=== PATIENT | male | born 1960 | race Caucasian/White ===

== ENCOUNTER 2016-07-07 10:52 | Day surgery (SDC) | payer OTHER ==
--- NOTE | 2016-07-06 09:48 | HP ---
DATE OF CLINIC: 06/30/2016 MO MOREL : 1960 PLANNED PROCEDURE: Left Knee Arthroscopic Partial Medial Meniscectomy DATE OF SURGERY: July 07, 2016 SURGEON: Mark Houston M.D. HISTORY OF PRESENT ILLNESS Mo Morel is a 55 year old male. * Medication list reviewed with patient allergy list reviewed with patient. This is a 55-year-old gentleman who was seen previously by [facility] with complaints of left knee pain and mechanical symptoms. The patient had an injury in September of 2015, and another in January of 2016 that resulted and difficulty with bearing weight, pain along the medial side of his knee and catching, popping and clicking when he tries to bear weight. He has tried anti-inflammatory medications. He has not tried any injections. He has not been to physical therapy. He does not have a previous history of any surgeries on this knee. He came to us with x-rays and an MRI which had been reviewed. His complaints are of ongoing left knee pain that is severely limiting in his capabilities to take care of himself and to participate in his desired levels of activities. After discussion and review of treatment options, both operative and non-operative, he has elected to proceed with surgery and presents today preoperatively. PAST MEDICAL AND SURGICAL HISTORY: Past medical history is significant for chronic obstructive pulmonary disease. The patient is on 4 L of oxygen at baseline, he has been on that level for about the last six months. He has been oxygen for about two years. Otherwise, past surgical history is noncontributory. CURRENT MEDICATION * Cyclobenzaprine HCl 10 MG Tablet 1 every bedtime 0 days, 0 refills * Lisinopril 10 MG Tablet 1 once a day 0 days, 0 refills * OxyCODONE HCl 10 MG Tablet three times a day 0 days, 0 refills * ProAir HFA 108 (90 Base) MCG/ACT Aerosol Solution as directed 0 days, 0 refills * TraZODone HCl 150 MG Tablet 1 every night as needed 0 days, 0 refills PAST MEDICAL/SURGICAL HISTORY Reported: Shoulder Arthroscopy Left shoulder scope/RCR, Right shoulder scope/RCR. Medical: Bladder disease has to pee a lot, a fracture ribs, Reported numbness feet and hands, Diabetes Mellitus, history of Arthritis, Depression, Hepatitis HEP A, and Poor healing wounds/lesions. Surgical / Procedural: Prior surgery lung surgery due to rib fractures, Appendectomy, and Cholecystectomy. SOCIAL HISTORY Behavioral: Caffeine use and non-smoker quit smoking stopped 2 years ago after smoking half a pack a day for 25 years. Smoking status: Former smoker. Alcohol: Alcohol a 6 pack a week and alcohol use. ALLERGIES * No Known Allergies REVIEW OF SYSTEMS No recent constitutional symptoms to include fevers and chills. No recent cardiovascular symptoms to include chest pain or palpitations. No recent respiratory symptoms to include shortness of breath or recent infections. He has respiratory complaints as noted above. PHYSICAL FINDINGS * Vitals taken 06/30/2016 01:19 pm BP-Sitting L 119/72 mmHg BP Cuff Size Regular Pulse Rate-Sitting 95 bpm Temp-Oral 97.7 F Height 71.5 in Weight 275 lbs 3.2 oz Body Mass Index 37.8 kg/m2 Body Surface Area 2.43 m2 Pain Level 9 Ears, Nose, Throat: * ENT: normal. Lungs: * Clear to auscultation. Cardiovascular: Heart Rate and Rhythm: * Normal. Abdomen: * Normal. Neurological: Motor: * Dominant Hand = Right Hand. This is a somewhat older than stated age appearing gentleman who appears somewhat disheveled, but is awake, alert and conversant throughout the encounter. He has oxygen in place with a bottle of oxygen by nasal cannula. He is occasionally some short of breath during the interview. CARDIOVASCULAR: Intact peripheral pulses on bilateral lower extremities. No significant edema on inspection of bilateral lower extremities. NEUROLOGIC: Patient had intact coordinated composite motion of the bilateral lower extremities and sensation intact to light touch in all distributions of bilateral lower extremities. PSYCHIATRIC: Patient was oriented to person, place and time and displayed appropriate mood and affect during the encounter. SKIN: Exam of the skin on bilateral lower extremities showed no significant scars, lesions, rashes or masses. FOCUSED MUSCULOSKELETAL EXAM: Focused musculoskeletal examination of his left knee shows normal resting station of the hips, knees and ankles. He has no erythema, ecchymosis or significant swelling. He has tenderness to palpation anteriorly with a positive patella grind and some pain along the medial joint line. His range of motion is from 0 to 120 degrees. He is stable to varus and valgus stress although he gets some discomfort with valgus and this causes pain in the region of the medial joint line versus tibial insertion of the MCL. There is no gary laxity however. His varus stress test is negative. He has negative Verena, anterior drawer and posterior drawer. A Kev's maneuver causes increase in pain and a palpable click along his medial joint line. IMAGING Review of imaging shows some degenerative changes on his left knee, x-rays with some medial compartment narrowing, varus malalignment and some marginal osteophytes. His MRI demonstrates evidence of a tear that is a likely acute on chronic of his meniscal body and posterior horn of the medial meniscus. ASSESSMENT A 55-year-old gentleman with underlying arthritis, with what appears to be an acute on chronic medial meniscus tear leading to mechanical symptoms and worsening pain. THERAPY * Patient eligible for fall risk assessment. PLAN * Complex tear of medial mensc, current injury, l knee, init Percocet 5-325 MG TABS, Take 1-2 tablets every 4 hours as needed for pain, 14 days, 0 refills * Knee Arthroscopy (Left) with PMM CARE TEAM Chaparro De La Rosa MD [facility] Disease Giana Thompson MD Pulmonary Disease SURGICAL CONSENT We have discussed surgical options including left knee arthroscopic PMM and non-operative management. The patient was counseled in detail regarding the diagnosis, treatment options available, prognosis of each treatment option and the potential risks and complications. The risks of surgery include, but are not limited to, anesthetic , neurovascular complications, pulmonary embolism, deep vein thrombosis, wound dehiscence, failure of any or all of the discussed procedures, infection of the joint or surrounding soft tissue, need for revision surgery, chronic pain, limitations in activities of daily living, inability to return to work, and loss of normal range of motion or functional use of the extremity. There is the possibility of failure over time that may require additional operative or non-operative treatment. The patient acknowledged that there are a number of perioperative risks not mentioned here and would still like to proceed. The patient is aware of and understands these risks, and wishes to proceed with the proposed surgical procedure and other procedures as indicated at the time of surgery. We will have the patient see their PCP for a preoperative medical risk assessment. The preoperative instructions were reviewed with the patient and all questions were answered. PB/sg
[2016-07-07] MEDS ORDERED: IV START KIT ONE (11:05)
[2016-07-07] MEDS ORDERED: LACTATED RINGERS 1,000 ML ONE (11:05)
[2016-07-07] MEDS ORDERED: CEFAZOLIN SODIUM 2 GRAM PREMIX 100 ML IV ONE (11:06)
[2016-07-07] MEDS ORDERED: CEFAZOLIN SODIUM 2 GRAM PREMIX 100 ML IV PRN (11:30)
[2016-07-07] MEDS ORDERED: PROPOFOL 20 ML IV ONE ×3 (11:57→14:28)
[2016-07-07] MEDS ORDERED: LIDOCAINE 2% (PRES FREE) 5 ML VIAL ONE (11:57)
[2016-07-07] MEDS ORDERED: MIDAZOLAM HCL 1 MG/ML 2ML VIAL ONE ×2 (11:57→14:26)
[2016-07-07] MEDS ORDERED: FENTANYL 100 MCG/2 ML VIAL ONE (11:58)
[2016-07-07] MEDS ORDERED: BUPIVACAINE 0.5% W/EPI SDV 30 ML VIAL ONE (13:32)
[2016-07-07] MEDS ORDERED: MINERAL OIL 25 ML BOT ONE (13:32)
[2016-07-07] MEDS ORDERED: SPINAL PROCEDURAL TRAY 1 EACH ONE (14:01)
[2016-07-07] MEDS ORDERED: BUPIVACAINE 0.75% SPINAL AMPUL 2 ML ONE (14:02)
[2016-07-07] MEDS ORDERED: ONDANSETRON 4 MG/2ML 2 ML VIAL ONE (14:37)
[2016-07-07] MEDS ORDERED: DEXAMETHASONE SOD PHOS 4 MG/1 ML VIAL ONE (14:37)
[2016-07-07] MEDS ORDERED: HYDROMORPHONE HCL 1 MG/ML SYRINGE IV PRN ×2 (14:40→15:38)
[2016-07-07] MEDS ORDERED: ATROPINE SULFATE 0.4 MG/1 ML VIAL IV PRN (14:40)
[2016-07-07] MEDS ORDERED: FENTANYL 100 MCG/2 ML VIAL IV PRN (14:40)
[2016-07-07] MEDS ORDERED: PROMETHAZINE HCL 25 MG/ML VIAL IM PRN (14:40)
[2016-07-07] MEDS ORDERED: NALOXONE HCL 0.4 MG/ML VIAL IV PRN (14:40)
[2016-07-07] MEDS ORDERED: LABETALOL HCL 5 MG/ML 20ML VIAL IV PRN (14:40)
[2016-07-07] MEDS ORDERED: MEPERIDINE 25 MG/ML SYRINGE IV PRN (14:40)
[2016-07-07] MEDS ORDERED: ONDANSETRON 4 MG/2ML 2 ML VIAL IV PRN ×2 (14:40→15:38)
[2016-07-07] MEDS ORDERED: HYDRALAZINE HCL 20 MG/1 ML VIAL IV PRN (14:40)
[2016-07-07] MEDS ORDERED: HYDROMORPHONE HCL 2 MG/ML SYRINGE ONE (14:47)
--- NOTE | 2016-07-07 14:56 | PCMBPN ---
Brief Post Op Note: Date of Procedure: 07/07/16 Start Time: 1415 Preoperative Diagnosis: 1. left knee medial meniscus tear Postoperative Diagnosis: 1. Same Procedure: left knee partial medial meniscectomy Surgeon: Mark Houston MD Assist: Ursula Muñoz Anesthesia: Ry Carlson Findings: as above Condition: stable to PACU Complications: none IV Fluids: 1100 mLs of LR Urine Output: 0 mLs Estimated Blood Loss: 5 mLs Tourniquet Time: 11 min at 250 mm Hg Specimens: none Implants: none Drains: none Mark Houston MD
[2016-07-07] MEDS ORDERED: OXYCODONE/ACETAMINOPHEN 5/325 MG TABLET PO PRN (15:38)
[2016-07-07] MEDS ORDERED: LACTATED RINGERS 1,000 ML IV SCH (15:38)
[2016-07-07] MEDS ORDERED: ACETAMINOPHEN 325 MG TABLET PO PRN (15:38)
[2016-07-07] MEDS ORDERED: DIPHENHYDRAMINE HCL 50 MG/1 ML VIAL IV PRN (15:38)
[2016-07-07] MEDS ORDERED: OXYCODONE/ACETAMINOPHEN 5/325 MG TABLET ONE (17:31)
--- NOTE | 2016-07-11 13:06 | OP ---
Isael MOREL : 1960 [id number] DATE OF PROCEDURE: July 07, 2016 PREOPERATIVE DIAGNOSIS: Left knee medial meniscus tear. POSTOPERATIVE DIAGNOSIS: Left knee medial meniscus tear. PROCEDURE PERFORMED: LEFT KNEE SCOPE WITH PARTIAL MEDIAL MENISCECTOMY. SURGEON: Mark Houston M.D. SHOE SPRAYER: Emeterio Atkinson P.A.-C. ANESTHESIA: Ry Carlson C.R.N.Jeison. SPECIMENS: No material was sent to the laboratory. ESTIMATED BLOOD LOSS: 5 mL FLUIDS REPLACED: 1100 mL of crystalloid. TOURNIQUET TIME: 11 minutes at 250 mmHg. URINE OUTPUT: None. IMPLANTS: None. DRAINS: No drains. INDICATIONS: This is a D5-year-old male who complains of pain and mechanical symptoms in the left knee that have been increasing over time and have not responded to a course of nonoperative measures. Patient has an exam and imaging studies which are consistent with the above. Given failure to improve with nonoperative measures patient was consented for left knee scope with partial medial meniscectomy. The risks, benefits and alternatives were discussed at length with that patient and they elected to proceed with surgery. Informed consent was obtained and documented in the chart and the patient was placed on the schedule the first available convenience. DESCRIPTION OF PROCEDURE: The patient was identified in the preoperative holding area where they were marked with an indelible marker by the operating surgeon. Patient was taken to the operating room where they were placed in the supine position the operating room table. A general anesthesia was induced, perioperative antibiotics were administered and a well padded pre-calibrated nonsterile tourniquet was placed on the left upper thigh. Patient was prepped and draped in the usual sterile fashion for surgery. An operative time out was performed and confirmed by all members of the operative team confirming the patient identity, procedure to be performed and the laterally for that procedure. All necessary personnel, equipment and implants were in place and there were no safety concerns. The leg was elevated and exsanguinated using the Esmarch bandage and the tourniquet was inflated to 250 mmHg. A standard lateral portal was created and the 30 degree viewing arthroscope was inserted into the knee. Optics were directed anteromedially and a medial portal was localized and created in a standard fashion. A probe was inserted through this medial portal and used in completion of the diagnostic arthroscopy with the following findings: The patient had significant grade 3 and 4 chondral changes over the medial femoral condyle both anteriorly and distally. He had a tear at the junction of the posterior horn in the midbody of the medial meniscus. His lateral meniscus and lateral compartment was largely intact. He had some grade 4 changes over the distal pole of his patella. His trochlea was largely intact. ACL and is no were intact. After completion of diagnostic arthroscopy the probe was exchanged for an arthroscopic biter and this was used to resect back the medial meniscus to a stable rim. This was then exchanged for arthroscopic resector shaver which was used to complete the partial medial meniscectomy and perform a shaving chondroplasty medial femoral condyle. At this point we felt that we had addressed the patient's intra-articular pathology and so the camera and instruments were removed from the knee. The portal sites were closed with #4-0 Nylons; 20 mL of 0.5% Marcaine was injected into the knee for perioperative analgesia. A sterile dressing of Xeroform, fluffs, ABDs, web roll and then an GABBY bandage from ankle to the thigh was applied. The tourniquet was deflated, the drapes were removed. The patient was awakened from anesthesia and extubated in the operating room without difficulty. Patient was transferred to a stretcher and taken postoperatively to the post anesthesia care unit in stable condition. There were no observed intraoperative complications during this procedure. Job [id number] Cc: [facility]
== END 2016-07-07 18:30 | disposition home or self-care (01) ==
LOC: SDC 10:52
PROVIDERS: ATTEND Orthopaedic Surgery
PROC: 0SBD4ZZ Excision of Left Knee Joint, Percutaneous Endoscopic Approach (ICD-10-PCS; principal; 2016-07-07)
DX: S83.232A Complex tear of medial meniscus, current injury, left knee, initial encounter (principal); M13.862 Other specified arthritis, left knee; J44.9 Chronic obstructive pulmonary disease, unspecified; Z99.81 Dependence on supplemental oxygen; E11.9 Type 2 diabetes mellitus without complications; F32.9 Major depressive disorder, single episode, unspecified; Z87.891 Personal history of nicotine dependence
CPT/HCPCS: 29881; J1170; J3010; J1100; A9270 ×2; J2250 ×2; J2405; J7120; J0690